=== PATIENT | female | born 1980 | race Caucasian/White ===

== ENCOUNTER 2016-08-28 16:15 | Inpatient (IN) | payer BC, OTHER ==
[~2016-08-28] VITALS: Ht 154.9 cm; Wt 46.7 kg
[2016-08-29] MEDS ORDERED: MIRALAX 17 GM POWD.PACK PO PRN (13:15)
[2016-08-29] MEDS ORDERED: THIAMINE HCL 200 MG/2 ML VIAL IM ONE (13:15)
[2016-08-29] MEDS ORDERED: MAGNESIUM HYDROXIDE 30 ML LIQUID UDC PO PRN (13:15)
[2016-08-29] MEDS ORDERED: ONDANSETRON 4 MG/2 ML VIAL IM PRN (13:15)
[2016-08-29] MEDS ORDERED: METHOCARBAMOL 750 MG TABLET PO PRN (13:15)
[2016-08-29] MEDS ORDERED: LORAZEPAM 2 MG/1 ML VIAL IM PRN (13:15)
[2016-08-29] MEDS ORDERED: LOPERAMIDE HCL 2 MG CAPSULE PO PRN ×2 (13:15)
[2016-08-29] MEDS ORDERED: LORAZEPAM 1 MG TABLET PO PRN ×2 (13:15)
[2016-08-29] MEDS ORDERED: BUPRENORPHINE HCL 2 MG TAB.SUBL SL PRN (13:15)
[2016-08-29] MEDS ORDERED: MAG HYDROX/AL HYDROX/SIMETH 30 ML LIQUID UDC PO PRN (13:15)
[2016-08-29] MEDS ORDERED: DICYCLOMINE HCL 20 MG TABLET PO PRN (13:15)
[2016-08-29] MEDS ORDERED: diphenhydrAMINE 50 MG CAPSULE PO PRN (13:15)
[2016-08-29] MEDS ORDERED: CLONIDINE HCL 0.1 MG TABLET PO PRN (13:15)
[2016-08-29] MEDS ORDERED: ACETAMINOPHEN 325 MG TABLET PO PRN (13:15)
[2016-08-29] MEDS ORDERED: ONDANSETRON ODT 4 MG TAB.RAPDIS SL PRN (13:15)
[2016-08-29] MEDS ORDERED: HYDROXYZINE PAMOATE 25 MG CAPSULE PO PRN (13:15)
--- NOTE | 2016-08-29 14:17 | NUR ---
pre-assessment note: assessed pt in intake pt is in stable condition V/S noted: B/P: 115/76, P:87, T: 97.6, R: 16 and 02 sat: 96%. pt is able to give consent and educated pt regarding protocols.
--- NOTE | 2016-08-29 14:30 | NUR ---
Pt is a 35 year old female, A+Ox4, presenting to [facility] for Benzo/Methamphetamine/Opiate dependence/withdrawal. Pt is 5'1 in height and 103 LBS in weight. Pt has an allergy to kiwi, pt is Full code status, and on Regular diet. Pt has medical HX of IBS, Anxiety, depression, appendectomy, Diverticulitis. Pt has no primary care provider but has a psychiatrist Shahida John. Pt has HX of previous detox/rehab for 30 days in [facility] and @ [facility] in August/september 2015.Pt did not bring home medications. Pt appears mildly intoxicated upon admission but is stable at this time. V/S WNL. No s/s of distress noted at this time. Respirations even and unlabored. Will continue to monitor.Pt was seen By Dr. Coles in Intake office and placed pt on a 5 day subutex/ativan taper. substance use: Heroin: 1/2-3 grams for 1 month daily last date of usage 08/29/16 Xanax: 1-4 mg on and off daily for 6 years last date of usage 08/29/16 Meth:1-1/2 gram for 2 months daily last date of usage 08/29/16
[2016-08-29 15:32] LABS: ALANINE AMINOTRANSFERASE 26 U/L (14-59); ALKALINE PHOSPHATASE 87 U/L (50-136); ASPARTATE AMINOTRANSFERASE 15 U/L (15-37); BILIRUBIN,TOTAL 0.2 mg/dL (0.2-1.0); CARBON DIOXIDE 31 mmol/L (21-32); CHLORIDE 102 mmol/L (98-107); CREATININE 0.8 mg/dL (0.6-1.3); GLUCOSE 70 mg/dL (74-106); POTASSIUM 3.5 mmol/L (3.5-5.1); TOTAL PROTEIN, SERUM 7.8 g/dL (6.4-8.2); UREA NITROGEN, BLOOD 16 mg/dL (7-18)
[2016-08-29 15:33] LABS: *URINE HCG, QUAL NEGATIVE (NEGATIVE)
[2016-08-29 15:42] LABS: THYROID STIMULATING HORMONE 1.777 mIU/mL (0.358-3.740)
[2016-08-29 15:58] LABS: BASOPHILS % (AUTO) 0.5 % (0.0-2.0); EOSINOPHILS # (AUTO) 0.1 K/uL (0.0-0.7); EOSINOPHILS % (AUTO) 1.1 % (0.0-7.0); HEMATOCRIT 43.9 % (37-47); HEMOGLOBIN 14.7 G/DL (12.0-16.0); LYMPHOCYTES # (AUTO) 3.6 K/UL (0.8-4.8); MEAN CORPUSCULAR HEMOGLOBIN 30.1 UUG (27.0-31.0); MEAN CORPUSCULAR HGB CONC 34 g/dL (32.0-37.0); MEAN CORPUSCULAR VOLUME 89.6 FL (81.0-99.0); MONOCYTES # (AUTO) 0.6 K/UL (0.1-1.30); MONOCYTES % (AUTO) 7.5 % (0.0-11.0); NEUTROPHILS # (AUTO) 3.8 K/UL (1.8-8.9); NEUTROPHILS % (AUTO) 45.9 % (38.5-71.5); PLATELET COUNT (AUTO) 262 K/UL (150-450); WHITE BLOOD COUNT (AUTO) 8.1 K/UL (4.0-11.2)
[2016-08-29 16:03] LABS: *AMPHETAMINE, URINE POSITIVE (NEGATIVE); *BARBITURATE, URINE NEGATIVE (NEGATIVE); *CANNABINOID, URINE NEGATIVE (NEGATIVE); *COCCAINE, URINE NEGATIVE (NEGATIVE); *OPIATE, URINE POSITIVE (NEGATIVE); *PHENCYCLIDINE SCREEN,URINE NEGATIVE (NEGATIVE)
[2016-08-29 16:13] LABS: ETHANOL < 3 MG/DL (0-0)
[2016-08-29] MEDS: GABAPENTIN 300 MG CAPSULE PO SCH (16:25)
[2016-08-29 17:26] VITALS: BP 101/64
--- NOTE | 2016-08-29 19:10 | NUR ---
end of shift note: pt is in stable condition at this time, [facility]meth withdrawal/dependence. pt is alert and oriented.at this time pt's v/s WNL. pts last cows 3 and ciwa 1. pt will start 5 adam ativan and subutex taper tomorrow.
[2016-08-29 20:00] VITALS: BP 123/71
--- NOTE | 2016-08-29 20:00 | NUR ---
Start of Shift Patient is a 35-year old, female, admitted for Benzo, Methamphetamine, Opiate Dependence. Pt has an allergy to kiwi, pt is Full code status, and on Regular diet. Pt has medical HX of IBS, Anxiety, Depression, Appendectomy and Diverticulitis. Pt placed on a 5-day Subutex, 5-day Ativan tapers, to start 08/30/2016. Pt is AAOx4, no SOB noted, ambulatory with steady gait and with intact skin. No anxiety noted at this time. Fall, universal and safety prec in place. Call light within reach. Latest COWS=4, CIWA=3. Will continue to monitor.
[2016-08-29] MEDS ORDERED: GABAPENTIN 300 MG CAPSULE PO SCH (21:00)
[2016-08-30] VITALS: BP 108/53
[2016-08-30 04:00] VITALS: BP 114/74
--- NOTE | 2016-08-30 07:08 | NUR ---
End of Shift Patient is a 35-year old, female, admitted for Benzo, Methamphetamine, Opiate Dependence. Pt has an allergy to kiwi, pt is Full code status, and on Regular diet. Pt has medical HX of IBS, Anxiety, Depression, Appendectomy and Diverticulitis. Pt placed on a 5-day Subutex, 5-day Ativan tapers, to start 08/30/2016. Pt is AAOx4, no SOB noted, ambulatory with steady gait and with intact skin. No anxiety noted at this time. Fall, universal and safety prec in place. Call light within reach. Latest COWS=3, CIWA=3 slept for 10 hours. Endorsed to AM shift nurse for continuity of care.
[2016-08-30 08:00] VITALS: BP 115/86
--- NOTE | 2016-08-30 08:00 | NUR ---
START OF SHIFT NOTE Received report from night nurse, 35-year old, female, admitted for Benzo, Methamphetamine, Opiate Dependence. Pt has an allergy to kiwi, pt is Full code status, and on Regular diet. Pt has PMH of IBS, Anxiety, Depression, Appendectomy and Diverticulitis. Pt placed on a 5-day Subutex, 5-day Ativan tapers,starting today. Per endorsement pt did not receive any PRN medications Last COWS-3, CIWA-3. Slept for 10 hours. Currently pt is asleep in her room responsive to verbal and tactile stimuli. No s/s of distress noted. Skin warm and dry to touch. All safety measures in place, Call light within reach. Will cont to monitor.
[2016-08-30] MEDS ORDERED: 5 DAY TAPER OF LORAZEPAM -SERENITY PROTOCOL PO PRN (09:00)
[2016-08-30] MEDS ORDERED: 5 DAY TAPER BUPRENORPHINE -SERENITY PROTOCOL SL PRN (09:00)
[2016-08-30] MEDS ORDERED: TUBERCULIN,PURIF.PROT.DERIV. 5 TU/0.1 ML TEST ID ONE (09:00)
[2016-08-30] MEDS: FOLIC ACID 1 MG TABLET PO SCH (09:13)
[2016-08-30] MEDS: THIAMINE HCL 100 MG TABLET PO SCH (09:13)
[2016-08-30] MEDS: BUPRENORPHINE HCL 2 MG TAB.SUBL SL SCH ×4 (09:14→21:06)
[2016-08-30] MEDS: DOCUSATE SODIUM 250 MG CAPSULE PO SCH (09:14)
[2016-08-30] MEDS: GABAPENTIN 300 MG CAPSULE PO SCH ×3 (09:14→21:27)
[2016-08-30] MEDS: MULTIVITAMINS,THERAPEUTIC TABLET PO SCH (09:14)
[2016-08-30] MEDS: LORAZEPAM 1 MG TABLET PO SCH ×4 (09:14→20:48)
[2016-08-30 12:00] VITALS: BP 114/68
[2016-08-30 16:00] VITALS: BP 118/71
--- NOTE | 2016-08-30 19:00 | NUR ---
END OF SHIFT NOTE Gave repot to night nurse, nurse, 35-year old, female, admitted for Benzo, Methamphetamine, Opiate Dependence. Pt has an allergy to kiwi, pt is Full code status, and on Regular diet. Pt has PMH of IBS, Anxiety, Depression, Appendectomy and Diverticulitis. Pt stated on a 5-day Subutex, 5-day Ativan taper this morning no adverse reaction noted. Encourage pt to attend groups and activities to learn new coping skills with good verbal understanding. Vital signs remained WNL. Last COWS-7, CIWA-7. All needs attended. Safety measures in place, Call light within reach. Will pass report to oncoming nurse.
[2016-08-30 20:00] VITALS: BP 121/72
--- NOTE | 2016-08-30 20:00 | NUR ---
START OF SHIFT NOTE PATIENT ALERT AND ORIENTED X 4. PATIENT REPORTS ANXIETY, NAUSEATED BUT NO EMESIS, STUFFY NOSE, GENERALIZED BODY ACHES AND TOOTHACHE 11/05. RECEIVED REPORT FROM DAY SHIFT NURSE. PATIENT IS A 35 YEAR OLD FEMALE, ADMITTED FROM OPIATE/BENZO DEPENDENCE. PATIENT IS ON 1ST DAY OF HER 5 DAY ATIVAN AND 5 DAY SUBUTEX TAPER. PATIENT IS FULL CODE, REGULAR DIET AND ALLERGIC TO KIWI. PATIENTS DRUG OF CHOICE ARE HEROIN 1/2 -3 GRAMS DAILY FOR A MONTH, XANAX 1-4 MG DAILY ON/OFF FOR 6 YEARS AND METH 1-1/2 GRAM DAILY FOR 2 MONTHS. ON FALL/SEIZURE PRECAUTION. ON ADMISSION, PATIENT HAS POSSIBLE ABSCESS ON RIGHT ARM AC. PATIENT DID NOT REQUIRE ANY PRN MEDICATION DURING THE DAY. VS WNL. LAST CIWA 7 AND COWS 7. SAFETY MEASURES IN PLACE. CALL LIGHT IN REACH. WILL CONTINUE TO MONITOR.
[2016-08-30] MEDS: IBUPROFEN 600 MG TABLET PO PRN (20:48)
--- NOTE | 2016-08-30 20:48 | NUR ---
PRN MOTRIN ADMINISTRATION PATIENT C/O TOOTHACHE . PRN MOTRIN GIVEN . WILL MONITOR FOR EFFECTIVENESS
[2016-08-30] MEDS ORDERED: GABAPENTIN 300 MG CAPSULE ONE (21:29)
[2016-08-31] VITALS: BP 114/74
[2016-08-31 04:00] VITALS: BP 114/74
--- NOTE | 2016-08-31 07:14 | NUR ---
PRN HAO RE-ASSESSMENT PATIENT IN BED ASLEEP. NO FACIAL GRIMACING. NO S/S OF DISTRESS. WILL CONTINUE TO MONITOR.
--- NOTE | 2016-08-31 07:19 | NUR ---
END OF SHIFT NOTE PATIENT REMAIN ALERT AND ORIENTED X 4. PATIENT REPORTED ANXIETY, NAUSEATED BUT NO EMESIS, STUFFY NOSE, GENERALIZED BODY ACHES AND TOOTHACHE 8/10 DURING SHIFT. PATIENT IS A 35 YEAR OLD FEMALE, ADMITTED FROM OPIATE/BENZO DEPENDENCE. PATIENT IS ON 1ST DAY OF HER 5 DAY ATIVAN AND 5 DAY SUBUTEX TAPER, TOLERATED WELL. NO ADVERSE REACTION PATIENT IS FULL CODE, REGULAR DIET AND ALLERGIC TO KIWI. PATIENTS DRUG OF CHOICE ARE HEROIN 1/2 -3 GRAMS DAILY FOR A MONTH, XANAX 1-4 MG DAILY ON/OFF FOR 6 YEARS AND METH 1-1/2 GRAM DAILY FOR 2 MONTHS. ON FALL/SEIZURE PRECAUTION. ON ADMISSION, PATIENT HAS POSSIBLE ABSCESS ON RIGHT ARM AC. PATIENT WAS GIVEN MOTRIN DURING SHIFT.. LAST CIWA 1 AND COWS 2. SAFETY MEASURES IN PLACE. CALL LIGHT IN REACH. WILL CONTINUE TO MONITOR. SLEPT 8 HOURS. FLUID INTAKE 1,636 ML. VOIDED X 1. NO BM. DR. IBARRA INCREASED NEURONTIN 2100 DOSE.
--- NOTE | 2016-08-31 07:47 | NUR ---
START OF SHIFT NOTE Received report from night nurse, 35-year old, female, admitted for Benzo, Methamphetamine, Opiate Dependence. Pt has an allergy to kiwi, pt is Full code status, and on Regular diet. Pt has PMH of IBS, Anxiety, Depression, Appendectomy and Diverticulitis. Pt placed on a 5-day Subutex, 5-day Ativan tapers. Per endorsement pt received PRN Motrin effective per night nurse. Last COWS-2, CIWA-1. Slept for 8 hours. Currently pt is asleep in her room responsive to verbal and tactile stimuli. No s/s of distress noted. Skin warm and dry to touch. All safety measures in place, Call light within reach. Will cont to monitor.
[2016-08-31 08:00] VITALS: BP 119/70
[2016-08-31] MEDS: DOCUSATE SODIUM 250 MG CAPSULE PO SCH (08:25)
[2016-08-31] MEDS: MULTIVITAMINS,THERAPEUTIC TABLET PO SCH (08:25)
[2016-08-31] MEDS: FOLIC ACID 1 MG TABLET PO SCH (08:25)
[2016-08-31] MEDS: GABAPENTIN 300 MG CAPSULE PO SCH ×3 (08:25→20:58)
[2016-08-31] MEDS: THIAMINE HCL 100 MG TABLET PO SCH (08:25)
[2016-08-31] MEDS: LORAZEPAM 1 MG TABLET PO SCH ×3 (08:26→20:59)
[2016-08-31] MEDS ORDERED: BUPRENORPHINE HCL 2 MG TAB.SUBL SL SCH (09:00)
[2016-08-31 12:00] VITALS: BP 105/66
[2016-08-31] MEDS: BUPRENORPHINE HCL 2 MG TAB.SUBL SL SCH ×2 (14:28→20:58)
[2016-08-31 16:00] VITALS: BP 111/67
--- NOTE | 2016-08-31 17:17 | NUR ---
Therapist advised client of group times. Client did not want to go because she doesn't feel well.
--- NOTE | 2016-08-31 18:49 | NUR ---
START OF SHIFT NOTE: Endorsed by day shift nurse a patient is a 35 year old female admitted to [facility] on 08/29/16 for Benzodiazepines, Opioid, and Methamphetamine dependence. Patient is on 5 Day Ativan and 5 Day Subutex Taper since 08/30/16, tolerated well. Patient has NKA, is on Regular Diet, and is Full Code status. Patient is on Seizure and Fall Precautions. Patient denies a history of withdrawal-induced seizures. Patient reported allergies to Kiwi. Patient denies Drug and Food Allergies. Patient is on Regular Diet, and is on Full Code status. Patient is on Fall and Seizures Precautions. PMH: Opiate use disorder, Anxiety, Depression, attention deficit and hyperactivity disorder Past Surgical History: Appendectomy. Last COWS 5, CIWA 4 at 1600 by day shift nurse report. Patient presented with Withdrawal s/s of : Anxiety, agitation, nervousness, resting pulse rate increased more than 80: "88" - record per minute, tremors, body aches, diaphoresis, nasal stuffy, moist eyes, mild headache, restlessness, fatigue, and yawning. VS WNL. Patient remains compliant with treatment plan, medications, and diet regimen. Respiration is even and unlabored. Breathing is even and unlabored. Patient denies chest pain and SOB. Lungs Sounds are clear bilaterally. Bowel Sounds are active in all 4 quadrants. Last Bowel Movement was " 08/31/16 afternoon". Skin is warm and dry to touch. Patient has closed abscess on Right arm. No open wounds noted. Encourage to fluids intake, as tolerated. All needs met. Safety measures in the place. Call light within reach, bed in the lowest position, and locked, padded bed rails up x2. Will continue to monitor closely.
--- NOTE | 2016-08-31 18:49 | NUR ---
END OF SHIFT NOTE Gave repot to night nurse, 35-year old, female, admitted for Benzo, Methamphetamine, Opiate Dependence. Pt has an allergy to kiwi, pt is Full code status, and on Regular diet. Pt has PMH of IBS, Anxiety, Depression, Appendectomy and Diverticulitis. Pt cont on 5-day Subutex, 5-day Ativan taper no adverse reaction noted. Encourage pt to attend groups and activities to learn new coping skills with good verbal understanding. Vital signs remained WNL. Last COWS-5, CIWA-4. All needs attended. Safety measures in place, Call light within reach. Will pass report to oncoming nurse.
[2016-08-31 20:00] VITALS: BP 102/62
[2016-09-01] VITALS: BP 117/75
[2016-09-01 04:00] VITALS: BP 110/63
[2016-09-01 04:06] LABS: HEPATITIS B SURFACE AG Negative (Negative)
--- NOTE | 2016-09-01 06:58 | NUR ---
END OF SHIFT NOTE: Patient endorsed to day shift nurse in stable condition. Patient is a 35 year old female admitted to [facility] on 08/29/16 for Benzodiazepines, Opioid, and Methamphetamine dependence. Patient is on 5 Day Ativan and 5 Day Subutex Taper since 08/30/16, tolerated well. Patient reported allergies to Kiwi. Patient denies Drug and Food Allergies. Patient is on Regular Diet, and is Full Code status. Patient is on Seizure and Fall Precautions. Patient denies a History of Withdrawal-Induced Seizures. PMH: Opiate Use Disorder, Anxiety, Depression, ADHD, Diverticulitis, and Appendectomy. Last COWS 7, CIWA 4 at 0400. During shift patient presented with anxiety, agitation, nervousness, tremors, body aches, diaphoresis, nasal stuffy, moist eyes, headache, restlessness, fatigue, and yawning. VS @ 0400: T: 98.6, HR: 78, BP: 110/63, RA O2Sat: 98%, RR: 14. Respiration is even and unlabored. Skin is warm and dry to touch with closed abscess on Right arm. Patient remains compliant with treatment plan, medications, and diet regimen. Educated of relaxation skills. Encourage to fluids intake, as tolerated. Encourage to attend activities and therapy groups regularly. Patient slept 9 hours, intake 350 ml. All needs met. Safety measures in the place. Call light within reach, bed in the lowest position, and locked, padded bed rails up x2.
--- NOTE | 2016-09-01 07:49 | NUR ---
START OF SHIFT Pt 35 y/o female admitted for opioid / benzo , and amphetamine. Pt received in room awake. Pt alert and oriented to name, place, and time. Perrla. Skin warm and slightly moist to touch. Respirations even and unlabored. It was reported that pt slept for 9 hours last night. Bed on lowest position with side rails x2 up for safety. Call light within reach. No distress noted at this time.
[2016-09-01 08:00] VITALS: BP 107/64
[2016-09-01] MEDS: GABAPENTIN 300 MG CAPSULE PO SCH ×2 (08:37→14:20)
[2016-09-01] MEDS: FOLIC ACID 1 MG TABLET PO SCH (08:37)
[2016-09-01] MEDS: THIAMINE HCL 100 MG TABLET PO SCH (08:38)
[2016-09-01] MEDS: MULTIVITAMINS,THERAPEUTIC TABLET PO SCH (08:38)
[2016-09-01] MEDS: BUPRENORPHINE HCL 2 MG TAB.SUBL SL SCH ×2 (08:38→14:21)
[2016-09-01] MEDS: DOCUSATE SODIUM 250 MG CAPSULE PO SCH (08:39)
[2016-09-01] MEDS ORDERED: BUPRENORPHINE HCL 2 MG TAB.SUBL SL SCH ×2 (09:00→15:00)
[2016-09-01] MEDS ORDERED: LORAZEPAM 1 MG TABLET PO SCH ×2 (09:00→15:00)
[2016-09-01] MEDS: IBUPROFEN 600 MG TABLET PO PRN (11:27)
--- NOTE | 2016-09-01 11:31 | NUR ---
PRN Pt with c/o tooth pain 10/05. Motrin po prn per MD order given and tolerated well.
--- NOTE | 2016-09-01 11:55 | NUR ---
PRN Pt states tooth is still painful. Dr. Coles made aware with new orders for lidocaine viscous oral prn q6h for pain, noted and carried out.
[2016-09-01 12:00] VITALS: BP 121/75
[2016-09-01] MEDS ORDERED: LIDOCAINE VISCUS 2% 15 ML UDC MM PRN (12:00)
--- NOTE | 2016-09-01 12:31 | NUR ---
PRN EVAL Pt states pain level 5/10 of tooth.
--- NOTE | 2016-09-01 13:33 | NUR ---
PRN Pt with c/o tooth pain 12/06. Lidocaine viscous prn per MD order given and tolerated well.
--- NOTE | 2016-09-01 15:27 | NUR ---
AMA Pt left AMA, Pt refused to comply with treatment. Pt educated about the risks and consequences of leaving AMA, even after speaking with DR. Cobb. Final doses of mediations were given per Dr. Cobb orders with an agreement to stay for half an hour to monitor before leaving. VS WNL, skin intact, and pt denies any suicidal or homicidal ideations. Pt was given a list of community resources , AMA forms explained and signed. All belongings returned to Pt.
[2016-09-02] MEDS ORDERED: BUPRENORPHINE HCL 2 MG TAB.SUBL SL SCH ×2 (09:00)
[2016-09-02] MEDS ORDERED: LORAZEPAM 1 MG TABLET PO SCH ×2 (09:00)
[2016-09-03] MEDS ORDERED: BUPRENORPHINE HCL 2 MG TAB.SUBL SL SCH (09:00)
[2016-09-03] MEDS ORDERED: LORAZEPAM 1 MG TABLET PO SCH (09:00)
== END 2016-09-01 15:37 | disposition left against medical advice (07) | DRG 894 ==
LOC: SRC 08-29 12:21
PROVIDERS: ADMIT Internal Medicine; ATTEND Internal Medicine
PROC: HZ2ZZZZ Detoxification Services for Substance Abuse Treatment (ICD-10-PCS; principal; 2016-08-29)
PROC: HZ31ZZZ Individual Counseling for Substance Abuse Treatment, Behavioral (ICD-10-PCS; 2016-08-31)
DX: F11.23 Opioid dependence with withdrawal (principal); F41.9 Anxiety disorder, unspecified; F17.290 Nicotine dependence, other tobacco product, uncomplicated; Z83.3 Family history of diabetes mellitus; Z81.3 Family history of other psychoactive substance abuse and dependence; F32.9 Major depressive disorder, single episode, unspecified; F13.220 Sedative, hypnotic or anxiolytic dependence with intoxication, uncomplicated; F15.220 Other stimulant dependence with intoxication, uncomplicated; Z91.89 Other specified personal risk factors, not elsewhere classified; F15.10 Other stimulant abuse, uncomplicated
CPT/HCPCS: 36415; 80307; 80324; 80346; 80361; 83735; 84443; 84703; 85025; 86580; 86592; 86705; 86803; 87340; 87806; G0480